=== PATIENT | male | born 1950 ===

== ENCOUNTER 2018-07-24 07:16 | Day surgery (SDC) | payer OTHER ==
[2018-07-24] MEDS ORDERED: Propofol 10 mg/ml Inj (20 ML) ONE ×2 (08:50→09:04)
--- NOTE | 2018-07-24 08:54 | CP.SDSHP ---
Same Day Surgery H & P - History Proposed Procedure: anemia. screening for colon cancer - Previous Medical/Surgical History Cardiac: Other (hyperlipidemia) Endocrine/Metabolic: Thyroid Disease, Diabetes - Allergies Allergies: Allergies No Known Allergies Allergy (Verified 07/24/18 07:43) - Physical Exam Vital Signs: Vital Signs 07/24/18 07:45 Temperature 97.5 F L Pulse Rate 73 Respiratory 72 H Rate Blood Pressure 132/80 O2 Sat by Pulse 97 Oximetry Mental Status: Alert & Oriented x3 Neuro: WNL Heart: WNL Lungs: WNL - Impression Impression: Anemia. screening for colon cancer Pt. Evaluated Today:Candidate for Anesthesia & Procedure: Yes - Date & Time Date: 07/24/18 Time: 08:53 Short Stay Discharge - Short Stay Discharge Admitting Diagnosis/Reason for Visit: ENCOUNTER FOR SCREENING FOR MALIGNANT NEOPLASM OF Disposition: HOME/ ROUTINE Referrals: Snow Welch MD [Primary Care Provider] -
[2018-07-24 08:57] VITALS: O2SAT 100
[2018-07-24 09:28] VITALS: TEMP 97.1
[2018-07-24 09:46] VITALS: PULSE 57
[2018-07-24 10:36] VITALS: BP 110/69; RESP 14
== END 2018-07-24 10:35 | disposition home or self-care (01) ==
LOC: C.ENDO 07:16
PROVIDERS: ATTEND Internal Medicine Gastroenterology
DX: K64.8 Other hemorrhoids (principal); D64.9 Anemia, unspecified; E78.49 Other hyperlipidemia
CPT/HCPCS: 45378; 82948; J2704